=== PATIENT | male | born 1960 | race Caucasian/White ===

== ENCOUNTER 2024-11-22 17:09 | Emergency (ER) | payer OTHER, MEDICAID ==
[~2024-11-22] VITALS: Ht 177.8 cm; Wt 70.0 kg
--- NOTE | 2024-11-22 17:59 | ED.PDOC ---
Psychiatric HPI Comments This is a 64 year-old male, with a PMHX of HTN, COPD, Depression, and Anxiety, who presents to the ED via EMS with a chief complaint of abdominal pain with N/V s/p alcohol intoxification today. Patient states he was picked up by EMS, from home, after drinking a liter of vodka. Patient reports quitting ETOH about X1 year ago, but has been drinking recently over the past couple of days. Patient has no further complaints at this time and otherwise denies further associated symptoms of ALOC, dizziness, blurred vision, auditory or visual hallucinations. Chief Complaint: ETOH Time Seen by MD: 18:01 Primary Care Provider: KATJAIES Reviewed Notes: Nurses Notes, Solar [employer] Pv Notes, Medications, Allergies Information Source: Patient, Emergency Med Personnel Mode of Arrival: EMS Severity of Mental Status: Moderate Severity of Symptoms: Moderate Timing: Hours Duration: Since onset Prehospital treatment: None Presents with: Alcohol Intoxication Associated signs and symptoms: Nausea, Vomiting, Abdominal Pain, Other (ETOH intoxification ) Past Medical History PAST MEDICAL HISTORY: Anxiety, COPD, Depression, High Lipids, HTN Surgical History: Denies all surgeries Family History Family History: Unknown Social History Smoker: Cigarettes Alcohol: Heavy Drugs: Unknown Lives In: Home Constitutional: denies: chills, diaphoresis, fatigue, fever, malaise, sweats, weakness, others EENTM: denies: blurred vision, double vision, ear bleeding, ear discharge, ear drainage, ear pain, ear ringing, eye pain, eye redness, hearing loss, mouth pain, mouth swelling, nasal discharge, nose bleeding, nose congestion, nose pain, photophobia, tearing, throat pain, throat swelling, voice changes, others Respiratory: denies: cough, hemoptysis, orthopnea, SOB at rest, shortness of breath, SOB with excertion, stridor, wheezing, others Cardiovascular: denies: chest pain, dizzy spells, diaphoresis, Dyspnea on exertion, edema, irregular heart beat, left arm pain, lightheadedness, palpitations, PND, syncope, others Gastrointestinal: reports: abdominal pain, nausea, vomiting; denies: abdomen distended, blood streaked bowels, constipated, diarrhea, dysphagia, difficulty swallowing, hematemesis, melena, poor appetite, poor fluid intake, rectal bleeding, rectal pain, others Genitourinary: denies: burning, dysuria, flank pain, frequency, hematuria, incontinence, penile discharge, penile sore, pain, testicle pain, testicle swelling, urgency, others Neurological: denies: dizziness, fainting, headache, left sided numbness, left sided weakness, numbness, paresthesia, pre-existing deficit, right sided numbness, right sided weakness, seizure, speech problems, tingling, tremors, weakness, others Musculoskeletal: denies: back pain, gout, joint pain, joint swelling, muscle pain, muscle stiffness, neck pain, others Integumetry: denies: bruises, change in color, change in hair/nails, dryness, laceration, lesions, lumps, rash, wounds, others Allergic/Immunocompromised: denies: Difficulty Healing, Frequent Infections, Hives, Itching, others Hematologic/Lymphatic: denies: anemia, blood clots, easy bleeding, easy bruising, swollen glands, others Endocrine: denies: excessive hunger, excessive sweating, excessive thirst, excessive urination, flushing, intolerance to cold, intolerance to heat, unexplained weight gain, unexplained weight loss, others Psychiatric: reports: others (alcohol intoxification ); denies: anxiety, bipolar disorder, depression, hopeless, panic disorder, schizophrenia, sleepless, suicidal All Other Systems: Reviewed and Negative Physical Exam General Appearance: No Apparent Distress HEENT: Other (Pupils and face symmetric. Dry mucous membranes.) Neck: Full Range of Motion, Normal Inspection Respiratory: Lungs Clear, No Accessory Muscle Use, No Respiratory Distress, Normal Breath Sounds Cardiovascular: No Edema, No JVD, Tachycardia Breast Exam: Deferred Gastrointestinal: Epigastric, LUQ, Soft, Tenderness Genitalia: Deferred Pelvic: Deferred Rectal: Deferred Extremities: Normal inspection, Normal range of motion, Non-tender, No pedal edema Neurologic: Alert (Oriented x3), Normal Affect, Normal Mood, Other (Ambulatory.) Cerebellar Function: NOT DONE Reflexes: NOT DONE Skin: Dry, Normal Color, Warm Lymphatic: NOT DONE Was a procedure done? Was a procedure done?: No Psych Differential Dx Psych. Differential Dx: Anxiety Suicidal Differential Dx: Alcohol Abuse, Substance Abuse Other Differentail Dx Gastritis, ulcer disease, pancreatitis or other biliary tract disease, colitis, diverticular disease, mi, among other X-Ray, Labs, Meds, VS Vital Signs Date Time Temp Pulse Resp B/P (MAP) Pulse Ox O2 Delivery O2 Flow Rate FiO2 11/22/24 20:08 83 16 150/93 11/22/24 17:23 98.5 103 18 150/93 (112) 95 98.5 11/22/24 17:14 98.5 103 18 150/93 95 98.5 Lab Test 11/22/24 18:47 11/22/24 17:52 Range/Units Troponin I High Sensitivity < 3 L < 3 L </=54 ng/L White Blood Count 6.4 4.4-10.8 10^3/uL Red Blood Count 5.62 4.5-5.90 10^6/uL Hemoglobin 17.0 13.5-17.5 g/dL Hematocrit 48.9 41.0-53.0 % Mean Corpuscular Volume 87.2 80.0-100.0 fL Mean Corpuscular Hemoglobin 30.2 28.0-32.0 pg Mean Corpuscular Hemoglobin Concent 34.7 32.0-36.0 g/dL Red Cell Distribution Width 14.4 H 11.8-14.3 % Platelet Count 272 140-450 10^3/uL Mean Platelet Volume 7.2 6.9-10.8 fL Neutrophils (%) (Auto) 38.7 37.0-80.0 % Lymphocytes (%) (Auto) 46.6 10.0-50.0 % Monocytes (%) (Auto) 11.1 0.0-12.0 % Eosinophils (%) (Auto) 2.3 0.0-7.0 % Basophils (%) (Auto) 1.3 0.0-2.0 % Neutrophils # (Auto) 2.5 1.6-8.6 10 ^3/uL Lymphocytes # (Auto) 3.0 0.4-5.4 10 ^3/uL Monocytes # (Auto) 0.7 0-1.3 10 ^3/uL Eosinophils # (Auto) 0.1 0-0.8 10 ^3/uL Basophils # (Auto) 0.1 0-0.2 10 ^3/uL Nucleated Red Blood Cells 0.1 % Sodium Level 143 136-145 mmol/L Potassium Level 4.1 3.5-5.1 mmol/L Chloride Level 105 98-107 mmol/L Carbon Dioxide Level 23 20-31 mmol/L Anion Gap 15 5-15 Blood Urea Nitrogen 9 9-23 mg/dL Creatinine 0.65 L 0.700-1.30 mg/dL Glomerular Filtration Rate Calc 106 >90 mL/min BUN/Creatinine Ratio 13.8 10.0-20.0 Serum Glucose 101 74-106 mg/dL Calcium Level 8.8 8.7-10.4 mg/dL Total Bilirubin 0.3 0.2-1.0 mg/dL Aspartate Amino Transferase (AST) 73 H 13-40 U/L Alanine Aminotransferase (ALT) 82 H 7-40 U/L Alkaline Phosphatase 147 H 46-116 U/L Total Protein 7.7 5.7-8.2 g/dL Albumin 4.3 3.2-4.8 g/dL Lipase 56 H 12-53 U/L Plasma/Serum Blood Alcohol 389.3 H <10 mg/dL Current Medications Medications (Trade) Dose Ordered Sig/Gino Route Start Time Stop Time Status Last Admin Sodium Chloride 1,000 ml @ 1,000 mls/hr Q1H ONCE IV 11/22/24 18:15 11/22/24 19:14 DC 11/22/24 19:13 Ondansetron HCl (Zofran) 4 mg ONCE ONCE IV 11/22/24 18:15 11/22/24 18:16 DC 11/22/24 20:08 Morphine Sulfate 4 mg ONCE ONCE IV 11/22/24 18:15 11/22/24 18:16 DC 11/22/24 20:08 Pantoprazole Sodium (Protonix) 40 mg ONCE ONCE IV 11/22/24 18:15 11/22/24 18:16 DC 11/22/24 20:08 [place] [id number] Ph: [phone] DIAGNOSTIC IMAGING Diagnostic Imaging Report : [id number] Signed PATIENT: ZAKIA ZUNIGA ACCT: [id number] UNIT: [id number] : 1960 LOC: ER ROOM / BED: / AGE / SEX: 64 / M ADM STATUS: REG ER SERVICE [id number] ORDERING PHYSICIAN: ANDREW AGUAYO MD PROCEDURE(s): ABPL - CT AB PEL WO CON-NO ORAL OR IV REASON: epig pain n/v ORDER NUMBER(s): [id number], ACCESSION NUMBER(s): [id number] Exam: CT CT AB PEL WO CON-NO ORAL OR IV History: epig pain n/v Comparison Study: None TECHNIQUE: Multidetector CT of the abdomen was performed from lung bases to pubi c symphysis. Imaging was performed without IV contrast. Axial, coronal and sagittal multiplanar reformats were obtained from the axial data set by the technologist. Radiation Dose Information: CT Dose: CTDI volume is 7.76 mGy. Dose-length product is 424.5 mGy*cm FINDINGS: Evaluation of solid organs is limited due to lack of intravenous contrast use. Findings: Lung Bases: No acute or significant lung base finding. Normal heart size. No pleural or pericardial effusion. Liver: The liver is normal in size. No focal lesions. Gallbladder and Biliary Tree: Unremarkable Spleen: Unremarkable Pancreas: The pancreas is grossly normal in appearance. Adrenal Glands: Enlarged right adrenal gland measuring 4.7 cm with tissue density -0.34 consistent with an adenoma lipoma. Kidneys: 3.7 cm nonobstructing calculus left kidney. Bladder: Grossly unremarkable for degree of distention. Bowel: The stomach is grossly normal in appearance. Small bowel and colon are normal in caliber and distribution. The appendix is not visualized; however, no secondary findings of acute appendicitis identified. Ascites: Absent Lymphadenopathy: No mesenteric, retroperitoneal or periportal lymphadenopathy. Abdominal Wall and Mesentery: Umbilical hernia containing fat measures 4.2 x 3.8 cm. Defect in the anterior abdominal wall measures 1.8 cm. Vasculature: Infrarenal abdominal aorta measures 2.6 cm. Pelvic Organs: Unremarkable Musculoskeletal: No aggressive focal bony lesions, acute fractures or dislocation. Soft tissues: Unremarkable IMPRESSION: 1. 3-4 mm nonobstructing left renal calculus 2. 2.6 cm infrarenal abdominal aorta consistent with mild aneurysmal dilatation. 3. 4.2 x 3.8 cm fat containing umbilical hernia. Defect in the anterior abdominal green 1.8 cm. 4. Enlarged right adrenal gland measuring 4.7 cm with tissue density -0.34 consistent with fatty tissue. 5. Nondilated fluid-filled small bowel. 6. CT findings consistent with hepatic steatosis. Radiation optimization: All CT scans at this facility use at least one of these dose optimization techniques: automated exposure control mA and/or kV adjustment per patient size (includes targeted exams where dose is matched to clinical indication) or iterative reconstruction. X-Ray, Labs, Meds, VS Comment 64-year-old male with a history of hypertension, dyslipidemia, anxiety, depression and alcohol abuse brought in by EMS complaining of upper abdominal p ain, nausea and vomiting Vitals remarkable for heart rate 103, BP 150/93 Exam remarkable for tachycardia, epigastric and left upper quadrant tenderness to palpation Rhythm strip independently interpreted by me: Sinus tach, rate 103, no ectopy. CT abdomen and pelvis IMPRESSION: 1. 3-4 mm nonobstructing left renal calculus 2. 2.6 cm infrarenal abdominal aorta consistent with mild aneurysmal dilatation. 3. 4.2 x 3.8 cm fat containing umbilical hernia. Defect in the anterior abdominal green 1.8 cm. 4. Enlarged right adrenal gland measuring 4.7 cm with tissue density -0.34 consistent with fatty tissue. 5. Nondilated fluid-filled small bowel. 6. CT findings consistent with hepatic steatosis. CBC unremarkable. CMP remarkable for AST 73, ALT 82, alkaline phos 147. Lipase elevated at 56. Serum alcohol level 389.3 Patient treated with the following in the ED: 1 L 0.9 normal saline IV bolus, morphine 4 mg IV, Zofran 4 mg IV, Protonix 40 mg IV, banana bag IV On re-evaluation, patient states pain and nausea have improved. Vitals were stable. Plan was for hospital admission and GI evaluation. Case discussed with FRANCIS Brooke, who did not feel the patient requires hospitalization. He will see the patient in the ED and also arrange for close outpatient follow-up with GI and vascular. Patient endorsed to the overnight ED physician at 10:00 p.m. pending discharge when sober. Images Reviewed?: Images reviewed and evaluated by me Time of 1ST Reevaluation: 18:35 Reevaluation 1ST: Unchanged Patient Education/Counseling: Diagnosis, Treatment, Need For Follow Up Family Education/Counseling: No Family Present Medical Screening: No EMC Exist At This Time Departure 1 Departure Time of Disposition: 19:44 Impression: Primary Impression: Alcohol intoxication Additional Impressions: Abdominal pain Nausea and vomiting Disposition: 01 HOME / SELF CARE / HOMELESS Condition: Stable Additional Instructions: Your blood tests showed pancreas and liver abnormalities. Your CT scan report is enclosed below, which you should showed to your primary doctor when you follow-up. You will be contacted for close follow-up with a epidemiologist and vascular surgeon for further evaluation of the abnormal ER findings. Follow-up with your primary doctor in 1-2 days. I have prescribed medication for your symptoms. Return to ER for persistent or worsening symptoms. [place] [address] Ph: [phone] DIAGNOSTIC IMAGING Diagnostic Imaging Report : [id number] Signed PATIENT: ZAKIA ZUNIGA ACCT: [id number] UNIT: [id number] : 1960 LOC: ER ROOM / BED: / AGE / SEX: 64 / M ADM STATUS: REG ER SERVICE 04 ORDERING PHYSICIAN: ANDREW AGUAYO MD PROCEDURE(s): ABPL - CT AB PEL WO CON-NO ORAL OR IV REASON: epig pain n/v ORDER NUMBER(s): [id number], ACCESSION NUMBER(s): [id number] Exam: CT CT AB PEL WO CON-NO ORAL OR IV History: epig pain n/v Comparison Study: None TECHNIQUE: Multidetector CT of the abdomen was performed from lung bases to pubic symphysis. Imaging was performed without IV contrast. Axial, coronal and sagittal multiplanar reformats were obtained from the axial data set by the technologist. Radiation Dose Information: CT Dose: CTDI volume is 7.76 mGy. Dose-length product is 424.5 mGy*cm FINDINGS: Evaluation of solid organs is limited due to lack of intravenous contrast use. Findings: Lung Bases: No acute or significant lung base finding. Normal heart size. No pleural or pericardial effusion. Liver: The liver is normal in size. No focal lesions. Gallbladder and Biliary Tree: Unremarkable Spleen: Unremarkable Pancreas: The pancreas is grossly normal in appearance. Adrenal Glands: Enlarged right adrenal gland measuring 4.7 cm with tissue density -0.34 consistent with an adenoma lipoma. Kidneys: 3.7 cm nonobstructing calculus left kidney. Bladder: Grossly unremarkable for degree of distention. Bowel: The stomach is grossly normal in appearance. Small bowel and colon are normal in caliber and distribution. The appendix is not visualized; however, no secondary findings of acute appendicitis identified. Ascites: Absent Lymphadenopathy: No mesenteric, retroperitoneal or periportal lymphadenopathy. Abdominal Wall and Mesentery: Umbilical hernia containing fat measures 4.2 x 3.8 cm. Defect in the anterior abdominal wall measures 1.8 cm. Vasculature: Infrarenal abdominal aorta measures 2.6 cm. Pelvic Organs: Unremarkable Musculoskeletal: No aggressive focal bony lesions, acute fractures or dislocation. Soft tissues: Unremarkable IMPRESSION: 1. 3-4 mm nonobstructing left renal calculus 2. 2.6 cm infrarenal abdominal aorta consistent with mild aneurysmal dilatation. 3. 4.2 x 3.8 cm fat containing umbilical hernia. Defect in the anterior abdominal green 1.8 cm. 4. Enlarged right adrenal gland measuring 4.7 cm with tissue density -0.34 consistent with fatty tissue. 5. Nondilated fluid-filled small bowel. 6. CT findings consistent with hepatic steatosis. Radiation optimization: All CT scans at this facility use at least one of these dose optimization techniques: automated exposure control mA and/or kV adjustment per patient size (includes targeted exams where dose is matched to clinical indication) or iterative reconstruction. e-Prescriptions Omeprazole Magnesium (Omeprazole) 20 Mg Tab 20 MG PO DAILY, #30 TAB Prov: ANDREW AGUAYO MD 11/22/24 Ondansetron Odt 4MG Tab (ZOFRAN PO) 4 Mg Tb 4 MG PO TID PRN, #30 TAB ODT TAB-DISSOLVE IN MOUTH, THEN SWALLOW Prov: ANDREW AGUAYO MD 11/22/24 Discharged With: Self Critical Care Note Critical Care Time?: No Stability Stability form required: No Heart Score Heart Score: Heart Score Response (Comments) Value History N/A 0 EKG N/A 0 Age N/A 0 Risk Factors N/A 0 Troponin N/A 0 Total 0 I personally scribed for ANDREW AGUAYO MD ([email or web address]) on 11/22/24 at 17:59. Electronically submitted by Alejandra Hagen ([employer]). I personally scribed for ANDREW AGUAYO MD ([email or web address]) on 11/22/24 at 18:15. Electronically submitted by Alejandra Hagen ([employer]). I personally scribed for ANDREW AGUAYO MD ([email or web address]) on 11/22/24 at 19:31. Electronically submitted by Alejandra Hagen ([facility]). ANDREW AGUAYO MD Nov 22, 2024 17:59
[2024-11-22 18:09] LABS: Hematocrit 48.9 % (41.0-53.0); Hemoglobin 17.0 g/dL (13.5-17.5); Mean Corpuscular Hemoglobin 30.2 pg (28.0-32.0); Mean Corpuscular Volume 87.2 fL (80.0-100.0); Nucleated Red Blood Cells % 0.1 %
[2024-11-22 18:33] LABS: Albumin 4.3 g/dL (3.2-4.8); Anion Gap 15 (5-15); BUN/Creatinine Ratio 13.8 (10.0-20.0); Bilirubin, Total 0.3 mg/dL (0.2-1.0); Calcium 8.8 mg/dL (8.7-10.4); Carbon Dioxide 23 mmol/L (20-31); Chloride 105 mmol/L (98-107); Glucose 101 mg/dL (74-106); Potassium 4.1 mmol/L (3.5-5.1); Sodium 143 mmol/L (136-145); Total Protein 7.7 g/dL (5.7-8.2)
[2024-11-22 18:34] LABS: Alanine Aminotransferase 82 U/L (7-40); Alkaline Phosphatase 147 U/L (46-116); Blood Urea Nitrogen 9 mg/dL (9-23)
[2024-11-22] MEDS: SODIUM CHLORIDE 0.9% 1,000 ML IV ONE (19:13)
--- NOTE | 2024-11-22 19:21 | DVH ---
Exam: CT CT AB PEL WO CON-NO ORAL OR IV History: epig pain n/v Comparison Study: None TECHNIQUE: Multidetector CT of the abdomen was performed from lung bases to pubic symphysis. Imaging was performed without IV contrast. Axial, coronal and sagittal multiplanar reformats were obtained fr om the axial data set by the technologist. Radiation Dose Information: CT Dose: CTDI volume is 7.76 mGy. Dose-length product is 424.5 mGy*cm FINDINGS: Evaluation of solid organs is limited due to lack of intravenous contrast use. Findings: Lung Bases: No acute or significant lung base finding. Normal heart size. No pleural or pericardial effusion. Liver: The liver is normal in size. No focal lesions. Gallbladder and Biliary Tree: Unremarkable Spleen: Unremarkable Pancreas: The pancreas is grossly normal in appearance. Adrenal Glands: Enlarged right adrenal gland measuring 4.7 cm with tissue density -0.34 consistent wi th an adenoma lipoma. Kidneys: 3.7 cm nonobstructing calculus left kidney. Bladder: Grossly unremarkable for degree of distention. Bowel: The stomach is grossly normal in appearance. Small bowel and colon are normal in caliber and d istribution. The appendix is not visualized; however, no secondary findings of acute appendicitis id entified. Ascites: Absent Lymphadenopathy: No mesenteric, retroperitoneal or periportal lymphadenopathy. Abdominal Wall and Mesentery: Umbilical hernia containing fat measures 4.2 x 3.8 cm. Defect in the an terior abdominal wall measures 1.8 cm. Vasculature: Infrarenal abdominal aorta measures 2.6 cm. Pelvic Organs: Unremarkable Musculoskeletal: No aggressive focal bony lesions, acute fractures or dislocation. Soft tissues: Unremarkable IMPRESSION: 1. 3-4 mm nonobstructing left renal calculus 2. 2.6 cm infrarenal abdominal aorta consistent with mild aneurysmal dilatation. 3. 4.2 x 3.8 cm fat containing umbilical hernia. Defect in the anterior abdominal green 1.8 cm. 4. Enlarged right adrenal gland measuring 4.7 cm with tissue density -0.34 consistent with fatty tiss ue. 5. Nondilated fluid-filled small bowel. 6. CT findings consistent with hepatic steatosis. Radiation optimization: All CT scans at this facility use at least one of these dose optimization te chniques: automated exposure control mA and/or kV adjustment per patient size (includes targeted exa ms where dose is matched to clinical indication) or iterative reconstruction.
[2024-11-22] MEDS: PANTOPRAZOLE 40 MG/10 ML VIAL INJ IV ONE (20:08)
[2024-11-22] MEDS: MORPHINE SULFATE 4 MG/ML SYR/VIAL IV ONE (20:08)
[2024-11-22] MEDS: ONDANSETRON HCL 4 MG/2 ML VIAL IV ONE (20:08)
[2024-11-22] MEDS: FOLIC ACID 1 MG, MAGNESIUM SULF SDV 50% 8 MEQ, MULTIPLE VITAMIN 10 ML, THIAMINE INJ 100... INJ ONE (20:15)
[2024-11-22] MEDS ORDERED: ZOFR4T PO (20:20)
[2024-11-22] MEDS ORDERED: OMEP-434 PO (20:20)
--- NOTE | 2024-11-22 22:42 | DVHINCON2 ---
Date of service: Nov 22, [address] Aleman Reason for Consultation Medical management History of Present Illness 64-year-old male with past medical history of hypertension, COPD, depression presents with complaints of abdominal pain with nausea and vomiting x1 day. Patient endorsed he drank 1L of vodka triggering the abdominal pain, nausea, and vomiting. Patient endorsed nausea, vomiting and abdominal pain has improved after being treated in the emergency department with IV Protonix, Zofran, morphine and 1 L NS. During the emergency department evaluation serum alcohol level found to be 389.3. At this time patient denies fevers, chills, dizziness, hallucinations, shortness of breath, chest pain, palpitations, leg swelling, hematemesis, hematochezia, melena. Past Medical History Hypertension, COPD, Family History: Patient reports no known family medical history. Social History ETOH dependence, denies illicit drug use, Allergies: Coded Allergies: NO KNOWN ALLERGIES (Unverified , 10/15/13) Home Meds Active Scripts Omeprazole Magnesium (Omeprazole) 20 Mg Tab, 20 MG PO DAILY, #30 TAB Prov:ANDREW AGUAYO MD 11/22/24 Ondansetron Odt 4MG Tab (ZOFRAN PO) 4 Mg Tb, 4 MG PO TID PRN, #30 TAB ODT TAB-DISSOLVE IN MOUTH, THEN SWALLOW Prov:ANDREW AGUAYO MD 11/22/24 Review of Systems Ten systems reviewed and negative except as per HPI Vital Signs Vital Signs Date Time Temp Pulse Resp B/P (MAP) Pulse Ox O2 Delivery O2 Flow Rate FiO2 11/22/24 20:08 83 16 150/93 11/22/24 17:23 98.5 95 98.5 Physical Exam GENERAL: Patient appearing stated age, in no acute distress. Intoxicated diaphoretic HEENT: Pupils equal and reactive to light and accommodation. Extraocular muscles intact. Mucous membranes moist. Conjunctivae pink. Anicteric sclerae. LUNGS: Bilateral air entry. No wheezes, rhonchi or rales. HEART: Regular rate and rhythm. Normal S1 and S2. ABDOMEN: BS normoactive, soft, nontender, and nondistended. No CVA tenderness. EXTREMITIES: No clubbing, cyanosis, edema. No calf tenderness. Pedal pulses 2+. NEUROLOGICAL: The patient is alert and oriented times 3. CN II-XII intact. No focal deficits on gross sensory or motor examination. No visible tremors. Labs/Diagnostic Data Labs Test 11/22/24 18:47 11/22/24 17:52 Range/Units Troponin I High Sensitivity < 3 L </=54 ng/L White Blood Count 6.4 4.4-10.8 10^3/uL Red Blood Count 5.62 4.5-5.90 10^6/uL Hemoglobin 17.0 13.5-17.5 g/dL Hematocrit 48.9 41.0-53.0 % Mean Corpuscular Volume 87.2 80.0-100.0 fL Mean Corpuscular Hemoglobin 30.2 28.0-32.0 pg Mean Corpuscular Hemoglobin Concent 34.7 32.0-36.0 g/dL Red Cell Distribution Width 14.4 H 11.8-14.3 % Platelet Count 272 140-450 10^3/uL Mean Platelet Volume 7.2 6.9-10.8 fL Neutrophils (%) (Auto) 38.7 37.0-80.0 % Lymphocytes (%) (Auto) 46.6 10.0-50.0 % Monocytes (%) (Auto) 11.1 0.0-12.0 % Eosinophils (%) (Auto) 2.3 0.0-7.0 % Basophils (%) (Auto) 1.3 0.0-2.0 % Neutrophils # (Auto) 2.5 1.6-8.6 10 ^3/uL Lymphocytes # (Auto) 3.0 0.4-5.4 10 ^3/uL Monocytes # (Auto) 0.7 0-1.3 10 ^3/uL Eosinophils # (Auto) 0.1 0-0.8 10 ^3/uL Basophils # (Auto) 0.1 0-0.2 10 ^3/uL Nucleated Red Blood Cells 0.1 % Sodium Level 143 136-145 mmol/L Potassium Level 4.1 3.5-5.1 mmol/L Chloride Level 105 98-107 mmol/L Carbon Dioxide Level 23 20-31 mmol/L Anion Gap 15 5-15 Blood Urea Nitrogen 9 9-23 mg/dL Creatinine 0.65 L 0.700-1.30 mg/dL Glomerular Filtration Rate Calc 106 >90 mL/min BUN/Creatinine Ratio 13.8 10.0-20.0 Serum Glucose 101 74-106 mg/dL Calcium Level 8.8 8.7-10.4 mg/dL Total Bilirubin 0.3 0.2-1.0 mg/dL Aspartate Amino Transferase (AST) 73 H 13-40 U/L Alanine Aminotransferase (ALT) 82 H 7-40 U/L Alkaline Phosphatase 147 H 46-116 U/L Total Protein 7.7 5.7-8.2 g/dL Albumin 4.3 3.2-4.8 g/dL Lipase 56 H 12-53 U/L Plasma/Serum Blood Alcohol 389.3 H <10 mg/dL Assessment - Alcohol intoxication - Gastritis - 2.6 cm abdominal aorta aneurysm This patient was seen and evaluated in the ER treatment area. The patient's chart has been reviewed in this entirety, including lab work, imaging, physical assessment, and treatment modality. During the emergency department evaluation CBC is unremarkable. CMP is unremarkable. Troponin levels are negative at 3/3. ETOH level 389.3. Lipase mildly elevated at [address] evidence of acute pancreatitis. CT of the abdomen pelvis without contrast, was interpreted per the radiologist and reads liver normal in size. Gallbladder unremarkable. Pancreas grossly normal in appearance. 3 to 4 mm non-obstruction left renal calculus. 2.6 cm infrarenal abdominal aorta consistent with mild aneurysmal dilation. 4.2 cm fat containing umbilical hernia defective anterior abdominal wall 1.8 cm. Enlarge right adrenal gland measure 4.7 cm with tissue density consistent with fatty tissue. Non-dilated fluid filled small bowel CT findings consistent with hepatic steatosis. At this time the patient has been treated with IV Protonix, IV Zofran, morphine and 1 L normal saline. Patient states that abdominal pain and nausea has improved. Plan/Recommendation This case was discussed in detail with the ER physician, Dr Aleman. Considering there are no acute findings warranting emergent inpatient hospitalization, I recommend the patient can be discharged home once he is sober in the morning. IV banana bag was ordered along with Librium for the patient per the emergency de partment. Final discharge disposition left to the emergency department. I have consulted O case management rn, Marva to establish home safety evaluation, follow up with gastroenterology, and follow up visit with vascular interventionalist for evaluation of incidental finding for 2.6cm AAA. Patient was counseled on alcohol cessation and encouraged to seek outpatient support. The plan of care was discussed in detail with the patient who states that he understands and is in agreement. The patient was provided with strict ER precautions including, but not limited to syncope, seizures, shortness of breath, chest pain, palpitations, vomiting bright red blood, coffee ground emesis, blood in stool. If any of these occur, returned to the nearest emergency department for further evaluation treatment. Plan discussed with: Patient MARLON LAZARO NP Nov 22, 2024 22:42
[2024-11-23] MEDS: GABAPENTIN 300 MG CAP PO ONE (01:06)
[2024-11-23] MEDS: SODIUM CHLORIDE 0.9% 1,000 ML IV ONE (01:06)
[2024-11-23] MEDS: THIAMINE 100mg/ml INJ (200mg/2ml VIAL) IM ONE (01:06)
[2024-11-23] MEDS: LORazepam 2MG/ML-1ML VIAL IV ONE (17:10)
[2024-11-23 18:55] VITALS: BP 150/92; PULSE 76; RESP 18; TEMP 98.4; O2SAT 93
== END 2024-11-23 18:55 | disposition home or self-care (01) ==
LOC: EDBD 17:09 → ER 17:09
DX: F10.229 Alcohol dependence with intoxication, unspecified (principal); R10.9 Unspecified abdominal pain; R11.2 Nausea with vomiting, unspecified; I10 Essential (primary) hypertension; F17.210 Nicotine dependence, cigarettes, uncomplicated; J44.9 Chronic obstructive pulmonary disease, unspecified; F41.9 Anxiety disorder, unspecified; E78.5 Hyperlipidemia, unspecified; Z79.899 Other long term (current) drug therapy; Y90.8 Blood alcohol level of 240 mg/100 ml or more
CPT/HCPCS: 36415; 74176; 80053; 80320; 82947; 83690; 84484; 85025; 96361; 96372; 96374; 96375; 99285; J2060; J2270; J2405; J2470; J3411; J7030